=== PATIENT | female | born 2000 | race Caucasian/White ===

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

== ENCOUNTER 2018-06-20 12:43 | Emergency (ER) | payer BC, OTHER ==
--- OUTSIDE RECORDS SUMMARY | 2018-06-20 13:51 | XMS REPORT | Continuity of Care Document ---
:2000 External Reference #:[id number] Author Name Maryuri Ponce NP Address [address] [place] [address] Care Team Providers Name Role Phone [facility] Primary Care Physician Unavailable Payers Date Identification Numbers Payment Provider Subscriber Effective: 2016 Policy Number: [id number] Basilia Cook [employer] Name: Basilia Donnelly Ppo. [address] [address] PayID: [id number] [place] [address] Policy Number: [id number] [facility] Mary Ellen Naiduox PayID: [id number] [address] [place] [address] Policy Number: [id number] Medicaid -[place] Naiduox PayID: [id number] [address] [place] [address] Advance Directives Description No Information Available Problems Date Description Provider Status Onset: 09/16/2014 Smoker Margaux Pettit NP Active Onset: 09/16/2014 Depressive disorder Margaux Pettit NP Active Onset: 09/16/2014 Headache Margaux Pettit NP Active Family History Date Family Member(s) Observation Comments Father Alive Father No Current Problems Mother Alive Mother Disc Disease buldging disc disease Siblings 2 half brothers Social History Type Date Description Comments Sex Female Education Negative For Highest level completed, 11th grade Education 06/19/2018 Highest level completed, 12th grade Marital Status Legal Status: Never Work Status Part-Time Employment [employer] Tobacco Use Reviewed: 06/19/18 Never Smoked Cigars Tobacco Use Reviewed: 06/19/18 Never Smoked A Pipe Smoking Status Reviewed: 06/19/18 Never Smoked A Pipe Tobacco Use Reviewed: 06/19/18 Never Used Smokeless Tobacco ETOH Use 06/19/2018 Denies alcohol use Recreational Drug Use Teaching provided regarding Naloxone/Narcan Training Available At [facility] Tobacco Use Reviewed: 06/19/18 Patient is a current smoker, smokes every day Recreational Drug Use 06/19/2018 Regularly uses Marijuana Tattoo/Piercing Tattoo professionally done Sun Exposure Uses sunscreen Condom Use Frequently STD's No STD History UNKNOWN 06/19/2018 Never E-Cigarette user Allergies, Adverse Reactions, Alerts Date Description Reaction Status Severity Comments 07/21/2014 NKDA Active 07/21/2014 Cats Active 07/21/2014 Bee Sting Active Medications Medication Date Status Form Strength Qnty SIG Indications Ordering Provider 06/19 Active Tablets 90tab one tablet per Z31.69 Maryuri s day SAM Ponce Albuterol 04/06 Active Nebulizer (2.5mg/3M prn In L) 0.083% MD Rocael Depo-Provera 12/13 Hx Suspension 150mg/ml 1ml 1 Z30.42 Maryuri intramuscular Rosario, - injection HEEL WHEELER 06/19 every until annual exam Nicotine 12/13 Hx Patches 21mg/24HR as directed Z72.0 [facility] 24HR Rosario, System Step 1 - HEEL WHEELER 06/19 Depo-Provera 09/27 Hx Suspension 150mg/ml 1ml 1 Maryuri intramuscular Rosario, - injection HEEL WHEELER 06/19 every until annual exam No Active 04/06 Hx Unknown /2015 - 04/06 Diflucan 03/05 Hx Tablets 150mg 1tabs 1 tab by mouth B37.3 as one dose Michael, - HEEL WHEELER 05/05 Medications Administered in Office Medication Date Status Form Strength Qnty SIG Indications Ordering Provider Depo-[employer] 06/27 Administered Suspension 150mg/ml 1ml intramuscu In [facility] lar every MD Rocael - 12 weeks 07/04 til annual Depo-[employer] 1ml12 Administered Suspension 150mg/ml 1ml intramuscu Z30.42 In [facility] lar every MD Rocael 016 12 weeks til next annual Depo-[employer] 12/23 Administered Suspension 150mg/ml 1ml 1 [facility] intramuscu Rosario - lar HEEL WHEELER 12/30 injection /2015 every 12 weeks until annual exam Depo-[employer] Pilot 1ml06 Administered Suspension 150mg/ml 1ml 1 Maryuri Cabrera intramuscu Rosario, 016 lar HEEL WHEELER injection every 12 weeks until annual exam Depo-[employer] Pilot 07/22 Administered Suspension 150mg/ml 1ml intramuscu In [facility] lar every MD Rocael - 12 weeks 07/26 til annual Depo-[employer] 1ml01 Administered Suspension 150mg/ml 1ml 1 Maryuri Cabrera intramuscu Rosario, 016 lar HEEL WHEELER injection every 12 weeks until annual exam Depo-[employer] Pilot 1ml10 Administered Suspension 150mg/ml 1ml 1 Margaux injection Servies, 015 every 12 HEEL WHEELER weeks until ae Depo-Arm[employer] Hel[employer]opter Pilot 09/16 Administered Suspension 150mg/ml 1ml 1 Z30.40 Margaux injection Servies, - every 12 HEEL WHEELER until ae Depo-Arm[employer]opter Pilot 07/21 Administered Suspension 150mg/ml 1ml 1 Margaux injection Servies, - every 12 HEEL WHEELER until ae J-Depo 1ml03 Administered Injection Sherry Provera /08/16 [place] Injection 018 J-Depo 03/23 Administered Injection Sherry Provera [place] Injection J-Depo 12/13 Administered Injection Maryuri M Prove Chiragchner, Injection HEEL WHEELER J-Depo 09/27 Administered Injection Sherry Provera [place] Injection J-Depo 07/04 Administered Injection Sherry Provera [place] Injection J-Depo 04/06 Administered Injection Uzma Prove Hairdick, Injection HEEL WHEELER J-Depo 12/30 Administered Injection Sherry Provera [place] Injection J-Depo 12/30 Administered Injection RN Prove Schedule Injection J-Depo 10/07 Administered Injection Maryuri M Prove Kelchner, Injection HEEL WHEELER J-Depo 07/22 Administered Injection Claude, Provera Vilma, RN Injection J-Depo 05/05 Administered Injection Claude, Provera Vilma, RN Injection J-Depo 02/10 Administered Injection Sherry Provera [place] Injection J-Depo 11/18 Administered Injection Claude, Prove Vilma, RN Injection J-Depo 11/18 Administered Injection RN Prove Schedule Injection J-Depo 08/26 Administered Injection Sherry Provera [place] Injection J-Depo 06/06 Administered Injection Sherry Provera [place] Injection J-Depo 03/19 Administered Injection Vilma Provera Claude Injection RN J-Depo 01/01 Administered Injection Sherry Provera [place] Injection Immunizations Description No Information Available Vital Signs Date Vital Result Comment 06/19/2018 9:52am BP Systolic Recheck 129 mmHg BP Diastolic Recheck 83 mmHg Height 64.5 inches 5'4.50" Weight 107.00 lb BMI (Body Mass Index) 18.1 kg/m2 06/19/2017 2:36pm BP Systolic 108 mmHg BP Diastolic 68 mmHg Weight 109.00 lb 03/23/2017 5:03pm BP Systolic 108 mmHg BP Diastolic 64 mmHg Weight 105.00 lb 12/13/2016 9:32am BP Systolic 109 mmHg BP Diastolic 66 mmHg Height 64.5 inches 5'4.50" Weight 101.00 lb BMI (Body Mass Index) 17.1 kg/m2 09/27/2016 2:45pm BP Systolic 118 mmHg BP Diastolic 72 mmHg Weight 100.00 lb 07/04/2016 2:36pm BP Systolic 118 mmHg BP Diastolic 68 mmHg Weight 107.00 lb 04/06/2016 3:00pm BP Systolic 120 mmHg BP Diastolic 69 mmHg Height 64.5 inches 5'4.50" Weight 109.00 lb BMI (Body Mass Index) 18.4 kg/m2 12/31/2015 3:34pm BP Systolic 104 mmHg BP Diastolic 68 mmHg Weight 111.00 lb 10/08/2015 3:41pm BP Systolic 88 mmHg BP Diastolic 58 mmHg Height 64.5 inches 5'4.50" Weight 106.00 lb BMI (Body Mass Index) 17.9 kg/m2 07/23/2015 4:13pm BP Systolic 104 mmHg BP Diastolic 62 mmHg Weight 105.00 lb 05/05/2015 3:05pm BP Systolic 98 mmHg BP Diastolic 60 mmHg Weight 99.00 lb Last Menstrual Period [id number] 03/05/2015 12:48pm BP Systolic 98 mmHg BP Diastolic 60 mmHg Height 64.5 inches 5'4.50" Weight 97.00 lb BMI (Body Mass Index) 16.4 kg/m2 02/10/2015 3:23pm BP Systolic 110 mmHg BP Diastolic 62 mmHg Weight 100.00 lb 12/16/2014 9:16am BP Systolic 100 mmHg BP Diastolic 70 mmHg Height 64.5 inches 5'4.50" Weight 95.00 lb BMI (Body Mass Index) 16.1 kg/m2 11/18/2014 1:36pm BP Systolic 110 mmHg BP Diastolic 60 mmHg Weight 95.00 lb Last Menstrual Period [id number] 09/16/2014 10:41am BP Systolic 100 mmHg BP Diastolic 60 mmHg Height 64 inches 5'4" Weight 97.00 lb BMI (Body Mass Index) 16.6 kg/m2 08/26/2014 3:17pm BP Systolic 106 mmHg BP Diastolic 64 mmHg Weight 100.00 lb Results Test Date Facility Test Result H/L Range Note Laboratory test 06/19/2018 [facility] Test positive finding Urine..... Culture,Urine,Voided 12/13/2016 [facility] URINE Final Report NAD 1 Laboratory test 12/13/2016 [facility].Trachomatis NOT DETECTED Not Detected 2 finding Rna,Tma W/RFX N.Gonorrhoeae Rna,Tma Urinalysis DIP 12/13/2016 [facility] Urine Leukocyte n Only.... Esterase QN Urine Nitrite QN n Urine Blood +non hem Urine PH 5 Urine Protein Random tr Urine Ketone Random n Urine Glucose QN Random n Laboratory test finding 04/06/2016 [facility] Test Urine..... Neg Culture,Urine,Voided 10/08/2015 [facility] URINE Final Report NAD 3 Laboratory test 10/08/2015 [facility].Trachomatis NOT DETECTED Not Detected 4 finding Rna,Tma W/RFX N.Gonorrhoeae Rna,Tma Urinalysis DIP 10/08/2015 [facility] Urine Leukocyte ++ Only.... Esterase QN Urine Nitrite QN N Urine Blood N Urine PH 5.0 Urine Protein Random N Urine Ketone Random + Urine Glucose QN Random N Laboratory test finding 10/08/2015 [facility] Test Urine..... neg Wet Prep.... 03/05/2015 [facility] WBC Smear 5-6 Clue Cells Vag Fluid Wet Prep - Fiorella Wet Prep + Lactobacillus Wet Prep + Whiff Wet Prep _ Bacteria Wet Prep + PH Wet Prep 4.5 Misc Other Test _ trich Laboratory test 03/05/2015 [facility].Trachomatis NOT DETECTED Not Detected 5 finding Rna,Tma W/RFX N.Gonorrhoeae Rna,Tma GC 12/16/2014 [facility] RESPIRATORY-OR 6 Culture,Genital AL Final Report SEE NOTE 7 Chlam 12/16/2014 [facility] C.Trachomatis NOT DETECTED Not Detected 8 Trach/Neisseria Rna,Tma Gonorroeae Rna Tma N.Gonorrhoeae Rna,Tma NOT DETECTED Not Detected 9 Wet Prep.... 12/16/2014 [facility] WBC Smear 5-6 Clue Cells Vag Fluid Wet Prep - Fiorlela Wet Prep _ Lactobacillus Wet Prep + Whiff Wet Prep _ Bacteria Wet Prep + PH Wet Prep 4.5 Misc Other Test _ Urinalysis DIP Only.... 12/16/2014 [facility] Urine Leukocyte Esterase QN + Urine Nitrite QN N Urine Blood N Urine PH 5 Urine Protein Random N Urine Ketone Random N Urine Glucose QN Random N Chlam 09/16/2014 [facility].Trachomatis NOT DETECTED Not Detected 10 Trach/Neisseria Rna,Tma Gonorroeae Rna Tma N.Gonorrhoeae Rna,Tma NOT DETECTED Not Detected 11 Culture,Urine,Voided 09/16/2014 [facility] URINE Final Report SEE NOTE 12 Neno Annual Lab Set 09/16/2014 [facility] HGB Blood.... 12.0 Urinalysis DIP Only.... 09/16/2014 [facility] Urine Leukocyte Esterase QN + Urine Nitrite QN N Urine Blood + non hem Urine PH 5 Urine Protein Random Tr Urine Ketone Random N Urine Glucose QN Random N Laboratory test 09/16/2014 [facility] HIV Rapid... non reactive finding Laboratory test 08/26/2014 [facility].Trachomatis NOT DETECTED Not Detected 13 finding Rna,Tma W/RFX N.Gonorrhoeae Rna,Tma 1 MULTIPLE ORGANISMS PRESENT, EACH <10,000 CFU/ML. THESE ORGANISMS COMMONLY FOUND ON EXTERNAL AND INTERNAL GENITALIA, ARE CONSIDERED TO BE COLONIZERS. NO FURTHER TESTING PERFORMED. 2 This test was performed using the APTIMA COMBO2(R) Assay (GEN-PROBE(R). The analytical performance characteristics of this assay, when used to test SurePath(R) specimens have been determined by [employer] (formerly [employer]). 3 MULTIPLE ORGANISMS PRESENT, EACH <10,000 CFU/ML. THESE ORGANISMS COMMONLY FOUND ON EXTERNAL AND INTERNAL GENITALIA, ARE CONSIDERED TO BE COLONIZERS. NO FURTHER TESTING PERFORMED. 4 This test was performed using the APTIMA COMBO2(R) Assay (GEN-PROBE(R). The analytical performance characteristics of this assay, when used to test SurePath(R) specimens have been determined by [facility]. 5 This test was performed using the APTIMA COMBO2(R) Assay (GEN-PROBE(R). The analytical performance characteristics of this assay, when used to test SurePath(R) specimens have been determined by [facility]. 6 RESPIRATORY-ORAL 7 NO NEISSERIA GONORRHOEAE ISOLATED. 8 This test was performed using the APTIMA COMBO2(R) Assay (GEN-PROBE(R). The analytical performance characteristics of this assay, when used to test SurePath(R) specimens have been determined by [facility]. 9 This test was performed using the APTIMA COMBO2(R) Assay (GEN-PROBE(R). The analytical performance characteristics of this assay, when used to test SurePath(R) specimens have been determined by [facility]. 10 This test was performed using the APTIMA COMBO2(R) Assay (GEN-PROBE(R). The analytical performance characteristics of this assay, when used to test SurePath(R) specimens have been determined by [facility]. 11 This test was performed using the APTIMA COMBO2(R) Assay (GEN-PROBE(R). The analytical performance characteristics of this assay, when used to test SurePath(R) specimens have been determined by [facility]. 12 MULTIPLE ORGANISMS PRESENT, EACH <10,000 CFU/ML. THESE ORGANISMS COMMONLY FOUND ON EXTERNAL AND INTERNAL GENITALIA, ARE CONSIDERED TO BE COLONIZERS. NO FURTHER TESTING PERFORMED. 13 This test was performed using the APTIMA COMBO2(R) Assay (GEN-PROBE(R). The analytical performance characteristics of this assay, when used to test SurePath(R) specimens have been determined by [facility]. Procedures Date Code Description Status 06/19/2017 18938 Therapeutic, Prophylactic Or Diagnostic Injection Subq/Im Completed 03/23/2017 39856 Therapeutic, Prophylactic Or Diagnostic Injection Subq/Im Completed 12/13/2016 65919 Therapeutic, Prophylactic Or Diagnostic Injection Subq/Im Completed 09/27/2016 83290 Therapeutic, Prophylactic Or Diagnostic Injection Subq/Im Completed 07/04/2016 73519 Therapeutic, Prophylactic Or Diagnostic Injection Subq/Im Completed 04/06/2016 47317 Therapeutic, Prophylactic Or Diagnostic Injection Subq/Im Completed 12/31/2015 91921 Therapeutic, Prophylactic Or Diagnostic Injection Subq/Im Completed 12/31/2015 74943 Therapeutic, Prophylactic Or Diagnostic Injection Subq/Im Completed 10/08/2015 48390 Therapeutic, Prophylactic Or Diagnostic Injection Subq/Im Completed 07/23/2015 89437 Therapeutic, Prophylactic Or Diagnostic Injection Subq/Im Completed 05/05/2015 38821 Therapeutic, Prophylactic Or Diagnostic Injection Subq/Im Completed 02/10/2015 36736 Therapeutic, Prophylactic Or Diagnostic Injection Subq/Im Completed 11/18/2014 40888 Therapeutic, Prophylactic Or Diagnostic Injection Subq/Im Completed 11/18/2014 23857 Therapeutic, Prophylactic Or Diagnostic Injection Subq/Im Completed 08/26/2014 97401 Therapeutic, Prophylactic Or Diagnostic Injection Subq/Im Completed 06/06/2014 92095 Therapeutic, Prophylactic Or Diagnostic Injection Subq/Im Completed 03/19/2014 39614 Therapeutic, Prophylactic Or Diagnostic Injection Subq/Im Completed 01/01/2014 94232 Therapeutic, Prophylactic Or Diagnostic Injection Subq/Im Completed Encounters Description No Information Available Plan of Treatment 06/19/2018 - Maryuri Ponce, NPN91.2 Amenorrhea, unspecifiedComments:+ test. Start a vitamin with folic acid. Do not touch cat litter. Do no eat raw or undercooked meat, dairy or seafood. Patient does not drink. Advised to quit smoking marijuana and tobacco. Advised Tylenol only for pain. Reviewed signs and symptoms of miscarriage and ectopic with patient. Please call for any questions or concerns. Refer to per patient request.Z31.69 Encounter for other general counseling and advice on procreaNew Medication: Vitamin - one tablet per dayComments:as ljyuhZ90.01 Encounter for test, result positiveComments:Options counseling performed. Patient would like to continue .F41.1 Generalized anxiety disorderComments:Recommend counseling as a safer alternative to using marijuana for her anxiety. Patient is willing to go to counseling. Gave her contact information and she plans to schedule counseling at [facility]. Also advised patient that she should discuss what are the safest options for medication therapy for anxiety during with her OB. Patient states understanding.
[2018-06-20 14:18] VITALS: BP 123/68
--- NOTE | 2018-06-20 14:43 | UC ---
- HPI Summary HPI Summary: Pt presents with c/o constant nausea and vomiting due to . Pt went to [facility] on 06/18/18 and found out she was . Pt LMP was in 04/03. Pt does not have an OB as of yet. Pt states she has been calling local OB provider and unable to find one to accept her. - History of Current Complaint Chief Complaint: UCGI Stated Complaint: PERSISTENT MORNING SICKNESS/VOMITING X 3 DAYS Time Seen by Provider: 06/20/18 14:31 Hx Obtained From: Patient Onset/Duration: Started Days Ago, Still Present Timing: Constant Severity: Moderate Current Severity: Mild Pain Intensity: 0 Associated Signs and Symptoms: Positive: Appetite - decreased - Assessment Hx Now: Yes - Allergies/Home Medications Allergies/Adverse Reactions: Allergies Allergy/AdvReac Type Severity Reaction Status Date / Time cats, maybe bees(father is Allergy Congestion Uncoded 06/20/18 14:02 allergic Home Medications: Home Medications Pnv No.95/Ferrous Fum/Folic AC [ Tablet] 1 tab PO DAILY 06/20/18 [ History Confirmed 06/20/18] PMH/Surg Hx/FS Hx/Imm Hx Previously Healthy: Yes Other History Of: Negative For: HIV, Hepatitis B, Hepatitis C, Anticoagulant Therapy - Surgical History Surgical History: Yes Surgery Procedure, Year, and Place: t&a - Family History Known Family History: Negative: Cardiac Disease, Hypertension, Diabetes - Social History Occupation: Employed Full-time Lives: With Family Alcohol Use: None Substance Use Type: None Smoking Status (MU): Never Smoked Tobacco Have You Smoked in the Last Year: No Household Exposure Type: Cigarettes - Immunization History Most Recent Influenza Vaccination: NOT YET IN 2106 Vaccination Up to Date: Yes Review of Systems All Other Systems Reviewed And Are Negative: Yes Constitutional: Positive: Fatigue Skin: Positive: Negative Eyes: Positive: Negative ENT: Positive: Negative Respiratory: Positive: Negative Cardiovascular: Positive: Negative Gastrointestinal: Positive: Vomiting, Nausea Genitourinary: Positive: Negative Motor: Positive: Negative Neurovascular: Positive: Negative Musculoskeletal: Positive: Negative Neurological: Positive: Negative Psychological: Positive: Negative Is Patient Immunocompromised?: No Physical Exam - Physical Exam Triage Information Reviewed: Yes Vital Signs Reviewed: Yes Appearance: Positive: Well-Appearing Skin: Positive: Warm Head/Face: Positive: Normal Head/Face Inspection Eyes: Positive: Normal ENT: Positive: Normal ENT inspection Neck: Positive: Supple Respiratory/Lung Sounds: Positive: Clear to Auscultation Cardiovascular: Positive: Normal Abdomen Description: Positive: Nontender Musculoskeletal: Positive: Normal Neurological: Positive: Normal Psychiatric: Positive: Normal, Affect/Mood Appropriate AVPU Assessment: Alert Diagnostics - Vital Signs Vital Signs Temp Pulse Resp BP Pulse Ox 06/20/18 13:58 106 122/75 06/20/18 13:53 98.6 F 73 20 120/64 100 - Laboratory Lab Results: Lab Results 06/20/18 Range/Units 14:31 POC Ur Test Positive A (Negative) Lab Statement: Any lab studies that have been ordered have been reviewed, and results considered in the medical decision making process. - Course Course Of Treatment: Pt denied urinary symptoms. I discussed all test results with pt. I discussed the risk factors of taking zofran and pt verbalized understanding. - Differential Diagnosis/HQI/PQRI: Hyperemesis Gravidarum, Early - Diagnoses Provider Diagnoses: Nausea and vomiting during Discharge - Sign-Out/Discharge Documenting (check all that apply): Patient Departure All imaging exams completed and their final reports reviewed: No Studies - Discharge Plan Condition: Stable Disposition: HOME Prescriptions: Ondansetron TAB* [Zofran 4 MG Tab*] 4 mg PO Q8H PRN #15 tab PRN Reason: Nausea Patient Education Materials: Nausea and Vomiting in (ED) Forms: *Work Release Referrals: [facility] [Provider Group] [facility] [Provider Group] [facility] [Provider Group] Lilian Webb NP [Primary Care Provider] - If Needed Additional Instructions: PLEASE ESTABLISH CARE WITH AN OB PROVIDER SOON POSSIBLE. PLEASE NOTE THAT WE DISCUSSED THE RISK FACTORS ASSOCIATED WITH TAKING ZOFRAN WHILE . PLEASE FOLLOW UP WITH OB PROVIDER WITH REGARD TO YOUR NAUSEA AND VOMITING RELATED TO . IF YOU ARE UNABLE TO MANAGE THE NAUSEA AND VOMITING AT HOME PLEASE SEEK CARE AT THE CLOSEST EMERGENCY ROOM. - Billing Disposition and Condition Condition: STABLE Disposition: Home
== END 2018-06-20 14:59 | disposition home or self-care (01) ==
LOC: UCCORT 12:43
DX: O21.9 Vomiting of pregnancy, unspecified (principal); Z91.09 Other allergy status, other than to drugs and biological substances
CPT/HCPCS: 81003; 84702; 87086; 99212; G0463

== ENCOUNTER 2019-01-05 11:14 | Emergency (ER) | payer BC, OTHER ==
[2019-01-05 12:07] VITALS: BP 112/59
--- NOTE | 2019-01-05 12:22 | UC ---
Throat Pain/Nasal Samuel HPI - HPI Summary HPI Summary: 18-year-old female whose 34 weeks comes in with chief complaint of sore throat runny nose for 3 days. It hurts to swallow. No cough or chest congestion. No wheezing. Patient does have a history of asthma. She has not had use her albuterol inhaler reports that she's had the upper respiratory tract infection symptoms. Feels the baby moving. - History of Current Complaint Chief Complaint: UCGeneralIllness Stated Complaint: SORE THROAT Time Seen by Provider: 01/05/19 12:03 Hx Last Menstrual Period: 03/2018 Pain Intensity: 8 - Allergies/Home Medications Allergies/Adverse Reactions: Allergies Allergy/AdvReac Type Severity Reaction Status Date / Time cats, maybe bees(father is Allergy Congestion Uncoded 01/05/19 12:07 allergic PMH/Surg Hx/FS Hx/Imm Hx Previously Healthy: Yes Respiratory History: Asthma Other History Of: Negative For: HIV, Hepatitis B, Hepatitis C, Anticoagulant Therapy - Surgical History Surgical History: Yes Surgery Procedure, Year, and Place: t&a - Family History Known Family History: Negative: Cardiac Disease, Hypertension, Diabetes - Social History Alcohol Use: None Substance Use Type: None Smoking Status (MU): Never Smoked Tobacco Have You Smoked in the Last Year: No Household Exposure Type: Cigarettes - Immunization History Most Recent Influenza Vaccination: NOT YET IN 2106 Vaccination Up to Date: Yes Review of Systems All Other Systems Reviewed And Are Negative: Yes Constitutional: Positive: Negative Skin: Positive: Negative Eyes: Positive: Negative ENT: Positive: Sore Throat, Nasal Discharge, Sinus Congestion Respiratory: Positive: Cough Cardiovascular: Positive: Negative Gastrointestinal: Positive: Negative Motor: Positive: Negative Neurovascular: Positive: Negative Musculoskeletal: Positive: Negative Neurological: Positive: Negative Psychological: Positive: Negative Is Patient Immunocompromised?: No Physical Exam Triage Information Reviewed: Yes Appearance: No Pain Distress, Well-Nourished, Ill-Appearing - mild Vital Signs: Initial Vital Signs Temp 98.1 F 01/05/19 12:05 Pulse 98 01/05/19 12:05 Resp 16 01/05/19 12:05 BP 112/59 01/05/19 12:05 Pulse Ox 99 01/05/19 12:05 Vital Signs Reviewed: Yes Eye Exam: Normal Eyes: Positive: Conjunctiva Clear ENT: Positive: Pharyngeal erythema, Nasal congestion, Nasal drainage, TMs normal Neck: Positive: Supple Respiratory: Positive: Lungs clear, Normal breath sounds, No respiratory distress Cardiovascular: Positive: RRR Abdomen Description: Positive: Other: - gravid Musculoskeletal: Positive: Strength Intact, ROM Intact Neurological: Positive: Alert Psychological: Positive: Age Appropriate Behavior Skin Exam: Normal Throat Pain/Nasal Course/Dx - Course Course Of Treatment: DISCUSSED VIRAL VERSES BACTERIAL INFECTION AND THE ROLE OF ANTIBIOTICS. PATIENT PREFERS TO BE ON ANTIBIOTICS AT THIS TIME. - Differential Dx/Diagnosis Provider Diagnosis: Pharyngitis, Upper respiratory infection Discharge ED - Sign-Out/Discharge Documenting (check all that apply): Patient Departure All imaging exams completed and their final reports reviewed: No Studies - Discharge Plan Condition: Stable Disposition: HOME Prescriptions: Amoxicillin PO (*) [Amoxicillin 500 MG CAP*] 500 mg PO BID #20 cap Patient Education Materials: Pharyngitis (ED), Upper Respiratory Infection (ED) Forms: *Work Release Referrals: Lilian Webb DRIVING INSTRUCTOR [Primary Care Provider] - Additional Instructions: FOLLOW UP WITH YOUR DOCTOR IF NOT COMPLETELY IMPROVED. GET REEVALUATED SOONER IF WORSE OR ANY QUESTIONS OR CONCERNS. - Billing Disposition and Condition Condition: STABLE Disposition: Home
== END 2019-01-05 12:35 | disposition home or self-care (01) ==
LOC: UCCORT 11:14
DX: O99.513 Diseases of the respiratory system complicating pregnancy, third trimester (principal); J02.9 Acute pharyngitis, unspecified; J06.9 Acute upper respiratory infection, unspecified; Z3A.34 34 weeks gestation of pregnancy
CPT/HCPCS: 87651; 99212; G0463

== ENCOUNTER 2019-02-20 12:49 | Emergency (ER) | payer BC, OTHER ==
[2019-02-20 13:54] VITALS: BP 117/67
--- NOTE | 2019-02-20 14:28 | UC ---
Complaint Female HPI - HPI Summary HPI Summary: 18-year-old female who is 6 days uncomplicated vaginal delivery presents with 2-3 day history of dysuria, frequency, and urgency. Patient is bottle feeding exclusively. Denies fever, chills, abdominal pain, back or flank pain, nausea, or vomiting. - History Of Current Complaint Chief Complaint: UCGU Stated Complaint: URINARY Time Seen by Provider: 02/20/19 13:52 Hx Obtained From: Patient Hx Last Menstrual Period: 03/2018 Pain Intensity: 0 - Allergies/Home Medications Allergies/Adverse Reactions: Allergies Allergy/AdvReac Type Severity Reaction Status Date / Time cats, maybe bees(father is Allergy Congestion Uncoded 02/20/19 13:49 allergic PMH/Surg Hx/FS Hx/Imm Hx Previously Healthy: Yes - Denies significant PMH Other History Of: Negative For: HIV, Hepatitis B, Hepatitis C, Anticoagulant Therapy - Surgical History Surgical History: Yes Surgery Procedure, Year, and Place: T&A - Family History Known Family History: Negative: Cardiac Disease, Hypertension, Diabetes - Social History Occupation: Employed Full-time Lives: With Family Alcohol Use: None Substance Use Type: None Smoking Status (MU): Never Smoked Tobacco Have You Smoked in the Last Year: No Household Exposure Type: Cigarettes - Immunization History Most Recent Influenza Vaccination: NOT YET IN 2106 Vaccination Up to Date: Yes Review of Systems All Other Systems Reviewed And Are Negative: Yes Constitutional: Negative: Fever, Chills Respiratory: Positive: Negative Cardiovascular: Positive: Negative Gastrointestinal: Negative: Abdominal Pain, Vomiting, Nausea Genitourinary: Positive: Dysuria, Frequency, Urgency. Negative: Abnormal Bleeding Musculoskeletal: Positive: Negative Neurological: Positive: Negative Is Patient Immunocompromised?: No Physical Exam - Summary Physical Exam Summary: GENERAL APPEARANCE: Well developed, well nourished, alert and cooperative, and appears to be in no acute distress. EYES: Conjunctiva clear. No drainage. EARS: External auditory canals and tympanic membranes clear, hearing grossly intact. NOSE: No nasal discharge. THROAT: Pharynx normal No tonsilar inflammation, swelling, exudate, or lesions. Uvula midline. NECK: Neck supple, non-tender without lymphadenopathy. CARDIAC: Normal S1 and S2. No S3, S4 or murmurs. Rhythm is regular. There is no peripheral edema, cyanosis or pallor. Extremities are warm and well perfused. Capillary refill is less than 2 seconds. Peripheral pulses intact. LUNGS: Clear to auscultation without rales, rhonchi, wheezing or diminished breath sounds. ABDOMEN: Positive bowel sounds. Soft, nondistended, nontender. No guarding or rebound. No masses or hepatosplenomegally. MUSKULOSKELETAL: ROM intact to all extremities. No joint erythema or tenderness. Normal muscular development. Normal gait. SKIN: Skin normal color, texture and turgor with no lesions or eruptions. Triage Information Reviewed: Yes Vital Signs: Initial Vital Signs Temp 98 F 02/20/19 13:50 Pulse 100 02/20/19 13:50 Resp 18 02/20/19 13:50 BP 117/67 02/20/19 13:50 Pulse Ox 98 02/20/19 13:50 Vital Signs Reviewed: Yes Complaint Female Dx - Course Course Of Treatment: 18-year-old female who is 6 days uncomplicated vaginal delivery presents with 2-3 day history of dysuria, frequency, and urgency. Patient is bottle feeding exclusively. Denies fever, chills, abdominal pain, back or flank pain, nausea, or vomiting. Afebrile. Vital signs stable. Patient's exam was overall unremarkable. [id number] urinalysis showed 3+ leukocyte esterase, 3 + blood, 2+ protein, 4+ her bilirubin, and trace glucose. Urine culture is pending. Reviewed results with the patient. Based on this and her symptoms we will treat her empirically for a urinary tract infection pending the urine culture results. She is to start Bactrim DS 1 tab twice daily 5 days. I'll also provide her with Pyridium 100 mg 3 times a day 2 days with the discomfort. She is to follow-up with her primary care provider in 3-5 days if symptoms are not improving. Anticipatory guidance and warning symptoms were reviewed with the patient. Verbalizes understanding and agrees with plan of care. - Differential Dx/Diagnosis Differential Diagnosis/HQI/PQRI: Pelvic Inflammatory Disease, Renal Colic, Sexually Transmitted Disease, Urinary Tract Infection Provider Diagnosis: UTI (urinary tract infection) Discharge ED - Sign-Out/Discharge Documenting (check all that apply): Patient Departure All imaging exams completed and their final reports reviewed: No Studies - Discharge Plan Condition: Stable Disposition: HOME Prescriptions: Phenazopyridine TAB* [Pyridium 100 mg TAB*] 100 mg PO TID #6 tab Sulfamethox/Trimethoprim DS* [Bactrim DS 800/160 TAB*] 1 tab PO BID #10 tab Patient Education Materials: Urinary Tract Infection in Women (DC) Referrals: No Primary Care Phys,NOPCP [Primary Care Provider] - Additional Instructions: Your urine test in the clinic today is suggestive of a urinary tract infection. We will start you on an antibiotic to treat for the infection. We will also send a urine culture today to see what bacteria grow out and make sure the antibiotic you were prescribed is appropriate to treat the infection. It will take 48-72 hours to get these results. We will contact you if there is any change in your treatment plan. Start Bactrim DS 1 tab twice a day for 5 days. Take Pyridium 1 tablet every 8 hours for next 2 days to help with the discomfort. This medication will turn your urine an orange color. Drink plenty of fluids. To help prevent urinary tract infections: 1) Be sure to wipe from front to back. 2) Urinate immediately after any sexual intercourse. 3) Avoid taking bubble baths. Follow up with your primary care provider in 3-57 days if symptoms persist. Seek immediate medical attention in the emergency room if you develop fever greater than 100.5 F, have severe abdominal pain, persistent vomiting, or any worsening of symptoms. - Billing Disposition and Condition Condition: STABLE Disposition: Home
--- NOTE | 2019-02-23 07:21 | UC ---
- Progress Note Progress Note: Laboratory report reviewed Final urine culture report: No growth of clinically significant organisms Initial UA suggestive of UTI and patient is on Bactrim currently RN to call the patient and discuss findings with the patient. Recommend stopping Bactrim and if symptoms are still present , should be reevaluated in ER as there was blood on UA as well. Course/Dx - Diagnoses Provider Diagnoses: UTI (urinary tract infection) Discharge ED - Sign-Out/Discharge Documenting (check all that apply): Post-Discharge Follow Up All imaging exams completed and their final reports reviewed: No Studies - Discharge Plan Condition: Stable Disposition: HOME Prescriptions: Phenazopyridine TAB* [Pyridium 100 mg TAB*] 100 mg PO TID #6 tab Sulfamethox/Trimethoprim DS* [Bactrim DS 800/160 TAB*] 1 tab PO BID #10 tab Patient Education Materials: Urinary Tract Infection in Women (DC) Referrals: No Primary Care Phys,NOPCP [Primary Care Provider] - Additional Instructions: Your urine test in the clinic today is suggestive of a urinary tract infection. We will start you on an antibiotic to treat for the infection. We will also send a urine culture today to see what bacteria grow out and make sure the antibiotic you were prescribed is appropriate to treat the infection. It will take 48-72 hours to get these results. We will contact you if there is any change in your treatment plan. Start Bactrim DS 1 tab twice a day for 5 days. Take Pyridium 1 tablet every 8 hours for next 2 days to help with the discomfort. This medication will turn your urine an orange color. Drink plenty of fluids. To help prevent urinary tract infections: 1) Be sure to wipe from front to back. 2) Urinate immediately after any sexual intercourse. 3) Avoid taking bubble baths. Follow up with your primary care provider in 3-57 days if symptoms persist. Seek immediate medical attention in the emergency room if you develop fever greater than 100.5 F, have severe abdominal pain, persistent vomiting, or any worsening of symptoms. - Billing Disposition and Condition Condition: STABLE Disposition: Home
== END 2019-02-20 14:39 | disposition home or self-care (01) ==
LOC: UCCORT 12:49
DX: O86.20 Urinary tract infection following delivery, unspecified (principal); Z91.09 Other allergy status, other than to drugs and biological substances
CPT/HCPCS: 81003; 87086; 99212; G0463

== ENCOUNTER 2019-06-03 10:44 | Emergency (ER) | payer BC, OTHER ==
--- OUTSIDE RECORDS SUMMARY | 2019-06-03 11:14 | XMS REPORT | Continuity of Care Document ---
:2000 External Reference #:[id number] Author Name Brooke Quintero, [facility] Address [address] [place] [id number] Care Team Providers Name Role Phone Bandar Arora MD - Emergency Care Team Information Forest Engineer [phone] Medicine Kristina Bedoya FNP - Family Care Team Information Forest Engineer [phone] Problems Active Problems Provider Date Candice Gann M.D. Onset: 10/02/2018 Hydronephrosis Candice Gann M.D. Onset: 10/02/2018 Social History Type Date Description Comments Sex Unknown Tobacco Use Start: Unknown Never Smoked Cigarettes ETOH Use Denies alcohol use Recreational Drug Use Denies Drug Use Tobacco Use Start: Unknown End: Unknown Patient is a former smoker Smoking Status Reviewed: 02/04/19 Patient is a former smoker Allergies, Adverse Reactions, Alerts Description No Known Drug Allergies Medications Active Medications SIG Qnty Indications Ordering Provider Date Albuterol Sulfate inhale 1 vial via Unknown nebulizer every 4 1.25mg/3ML Nebulizer hours as needed for cough or sob Immunizations Description No Information Available Vital Signs Date Vital Result Comment 04/15/2019 9:42am BP Systolic 116 mmHg BP Diastolic 70 mmHg Body Temperature 97.3 F Heart Rate 87 /min Height 64 inches 5'4" [place] body weight in kilograms 54 kg O2 % BldC Oximetry 99 % 04/04/2019 9:57am BP Systolic Sitting Left Arm 129 mmHg BP Diastolic Sitting Left Arm 71 mmHg Body Temperature 95.7 F Heart Rate 94 /min Respiratory Rate 20 /min Height 64 inches 5'4" Weight 129.00 lb BMI (Body Mass Index) 22.1 kg/m2 BSA (Body Surface Area) 1.62 m2 [place] body weight in kilograms 54 kg O2 % BldC Oximetry 99 % Results Description No Information Available Procedures Date Code Description Status 04/15/2019 02582 Radiology, Wrist Complete Completed 04/15/2019 22310 Application of Cast short arm Completed Medical Devices Description No Information Available Encounters Type Date Location Provider Dx Diagnosis Office Visit 04/15/2019 Orthopaedic Office Brooke Quintero M25.531 Pain in right 10:00a S., [facility] wrist Office Visit 04/04/2019 Orthopaedic Office Brooke Quintero M25.531 Pain in right 10:00a S., [facility] wrist Assessments Date Code Description Provider 04/15/2019 M25.531 Pain in right wrist Brooke Quintero, [facility] 04/04/2019 M25.531 Pain in right wrist Brooke Quintero, [facility] Plan of Treatment No Information Available Functional Status Description No Information Available Mental Status Description No Information Available Referrals Description No Information Available
--- OUTSIDE RECORDS SUMMARY | 2019-06-03 11:14 | XMS REPORT | Continuity of Care Document ---
:2000 External Reference #:[id number] Author Name Brooke Quintero, [facility] Address [address] [place] [id number] Care Team Providers Name Role Phone Bandar Arora MD - Emergency Care Team Information Entry Level Software Engineer [phone] Medicine Kristina Bedoya FNP - Family Care Team Information Entry Level Software Engineer [phone] Problems Active Problems Provider Date Candice Gann [...] Medications SIG Qnty Indications Ordering Provider Date Diclofenac Sodium 1 tab twice a day 60tabs Ana Jacome, 05/17/2019 with food 50mg Tablets Albuterol Sulfate inhale 1 vial via Unknown nebulizer every 4 1.25mg/3ML Nebulizer hours as needed for cough or sob Immunizations Description No Information Available Vital Signs Date Vital Result Comment 05/17/2019 8:55am BP Systolic Sitting Right Arm 112 mmHg BP Diastolic Sitting Right Arm 69 mmHg 04/15/2019 9:42am BP Systolic 116 mmHg BP Diastolic 70 mmHg Body Temperature 97.3 F Heart Rate 87 /min Height 64 inches 5'4" [place] body weight in kilograms 54 kg O2 % BldC Oximetry 99 % Results Description No Information Available Procedures Date Code Description Status 05/17/2019 07139 Radiology, Wrist Complete Completed 04/15/2019 20853 Radiology, Wrist Complete Completed 04/15/2019 52083 Application of Cast short arm Completed 04/04/2019 40918 Application of Cast short arm Completed Medical Devices Description No Information Available Encounters Type Date Location Provider Dx Diagnosis Office Visit 04/15/2019 Orthopaedic Office Brooke Quintero M25.531 Pain in right 10:00a S., [facility] wrist Office Visit 04/04/2019 Orthopaedic Office Brooke Quintero M25.531 Pain in right 10:00a S., [facility] wrist W00.9xxA Unspecified fall due to ice and snow, initial encounter Assessments Date Code Description Provider 05/17/2019 M25.531 Pain in right wrist Brooke Quintero, [facility] 04/15/2019 M25.531 Pain in right wrist Brooke Quintero, [facility] 04/04/2019 M25.531 Pain in right wrist Brooke Quintero, [facility] 04/04/2019 W00.9xxA Unspecified fall due to ice and snow, Brooke Quintero [facility] initial encounter Plan of Treatment Future Appointment(s):06/14/2019 9:45 am - Brooke Quintero [facility] at Orthopaedic Office Functional Status Description No Information Available Mental Status Description No Information Available Referrals Description No Information Available
--- OUTSIDE RECORDS SUMMARY | 2019-06-03 11:14 | XMS REPORT | Continuity of Care Document ---
:1998 External Reference #:[id number] Author Name Brooke Quintero, [facility] Address [address] [place] [phone] Care Team Providers Name Role Phone Bandar Arora MD - Emergency Care Team Information Certified Substance Abuse Counselor [phone] Medicine Kristina Bedoya FNP - Family Care Team Information Certified Substance Abuse Counselor [phone] Problems Active Problems Provider Date Candice Gann [...] Rate 87 /min Height 64 inches 5'4" [place] body weight in kilograms 54 kg O2 % BldC Oximetry 99 % 04/04/2019 9:57am BP Systolic Sitting Left Arm 129 mmHg BP Diastolic Sitting Left Arm 71 mmHg Body Temperature 95.7 F Heart Rate 94 /min Respiratory Rate 20 /min Height 64 inches 5'4" Weight 129.00 lb BMI (Body Mass Index) 22.1 kg/m2 BSA (Body Surface Area) 1.62 m2 [place] body weight in kilograms 54 kg O2 % BldC Oximetry 99 % Results Description No Information Available Procedures Date Code Description Status 04/15/2019 76692 Radiology, Wrist Complete Completed Medical Devices Description No Information Available Encounters Type Date Location Provider Dx Diagnosis Office Visit 04/04/2019 Orthopaedic Office Brooke Quintero M25.531 Pain in right 10:00a [facility] wrist Assessments Date Code Description Provider 04/15/2019 M25.531 Pain in right wrist Brooke Quintero [facility] 04/04/2019 M25.531 Pain in right wrist Brooke Quintero [facility] Plan of Treatment No Information Available Functional Status Description No Information Available Mental Status Description No Information Available Referrals Description No Information Available
[2019-06-03 11:25] VITALS: BP 127/78
[2019-06-03 11:39] LABS: Influenza A Molecular Negative (Negative); Influenza B Molecular Negative (Negative)
--- NOTE | 2019-06-03 11:41 | UC ---
Throat Pain/Nasal Samuel HPI - HPI Summary HPI Summary: 19-year-old woman comes in with a chief complaint of sore throat and feeling ill. Does have some body aches. Symptoms started yesterday. Hurts to swallow. Patient has a 3-month-old at home. She is not breast-feeding. Minimal rhinorrhea. - History of Current Complaint Chief Complaint: UCRespiratory Stated Complaint: SORE THROAT, COUGH Time Seen by Provider: 06/03/19 11:14 Hx Last Menstrual Period: last week Pain Intensity: 7 - Allergies/Home Medications Allergies/Adverse Reactions: Allergies Allergy/AdvReac Type Severity Reaction Status Date / Time cats, maybe bees(father is Allergy Congestion Uncoded 06/03/19 11:25 allergic Home Medications: Home Medications O C 1 tab PO QPM 06/03/19 [History] PMH/Surg Hx/FS Hx/Imm Hx Previously Healthy: Yes Other History Of: Negative For: HIV, Hepatitis B, Hepatitis C, Anticoagulant Therapy - Surgical History Surgical History: Yes Surgery Procedure, Year, and Place: T&A - Family History Known Family History: Negative: Cardiac Disease, Hypertension, Diabetes - Social History Alcohol Use: None Substance Use Type: None Smoking Status (MU): Never Smoked Tobacco Have You Smoked in the Last Year: No Household Exposure Type: Cigarettes - Immunization History Most Recent Influenza Vaccination: NOT YET IN 2106 Vaccination Up to Date: Yes Review of Systems All Other Systems Reviewed And Are Negative: Yes Constitutional: Positive: Other - see hpi Skin: Positive: Negative Eyes: Positive: Negative ENT: Positive: Sore Throat, Nasal Discharge Respiratory: Positive: Negative Cardiovascular: Positive: Negative Gastrointestinal: Positive: Negative Genitourinary: Positive: Negative Motor: Positive: Negative Neurovascular: Positive: Negative Musculoskeletal: Positive: Myalgia Neurological/Mental Status: Positive: Negative Psychological: Positive: Negative Is Patient Immunocompromised?: No Physical Exam Triage Information Reviewed: Yes Vital Signs: Initial Vital Signs Temp 98.4 F 06/03/19 11:17 Pulse 103 06/03/19 11:17 Resp 18 06/03/19 11:17 BP 127/78 06/03/19 11:17 Pulse Ox 99 06/03/19 11:17 Vital Signs Reviewed: Yes Eye Exam: Normal Eyes: Positive: Conjunctiva Clear ENT: Positive: Pharyngeal erythema, Nasal congestion, Nasal drainage, TMs normal Neck: Positive: Supple Respiratory: Positive: Lungs clear, Normal breath sounds, No respiratory distress Cardiovascular: Positive: RRR Musculoskeletal: Positive: Strength Intact, ROM Intact Neurological: Positive: Alert, Muscle Tone Normal Psychological: Positive: Normal Response To Family, Age Appropriate Behavior Skin Exam: Normal Throat Pain/Nasal Course/Dx - Course Course Of Treatment: Strep and flu are both negative. Most probable viral infection. We will treat symptomatically. Get reevaluated if not improving or worse. - Differential Dx/Diagnosis Provider Diagnosis: Sore throat, Upper respiratory infection Discharge ED - Sign-Out/Discharge Documenting (check all that apply): Patient Departure All imaging exams completed and their final reports reviewed: No Studies - Discharge Plan Condition: Stable Disposition: HOME Patient Education Materials: Pharyngitis (ED), Upper Respiratory Infection (ED) Forms: *Work Release Referrals: No Primary Care Phys,NOPCP [Primary Care Provider] - Additional Instructions: FOLLOW UP WITH YOUR DOCTOR IF NOT COMPLETELY IMPROVED. GET REEVALUATED SOONER IF NOT IMPROVED OR WORSE OR ANY QUESTIONS OR CONCERNS. - Billing Disposition and Condition Condition: STABLE Disposition: Home
== END 2019-06-03 11:54 | disposition home or self-care (01) ==
LOC: UCCORT 10:44
DX: J06.9 Acute upper respiratory infection, unspecified (principal); J02.9 Acute pharyngitis, unspecified; Z91.09 Other allergy status, other than to drugs and biological substances
CPT/HCPCS: 87651; 99211; G0463

== ENCOUNTER 2019-07-04 08:30 | Emergency (ER) | payer BC, OTHER ==
--- OUTSIDE RECORDS SUMMARY | 2019-07-04 08:44 | XMS REPORT | Continuity of Care Document ---
:2000 External Reference #:[id number] Author Name Brooke Quintero, [facility] (transmitted by agent of provider Joy Jacome ) Address [address] [place] [id number] Care Team Providers Name Role Phone Bandar Arora MD - Emergency Care Team Information Floor Press Operator [phone] Medicine Kristina Bedoya FNP - Family Care Team Information Floor Press Operator [phone] Problems Active Problems Provider Date Candice Gann [...] Ana Jacome, 05/17/2019 with food 50mg Tablets DR Albuterol Sulfate inhale 1 vial via Unknown nebulizer every 4 1.25mg/3ML Nebulizer hours as needed for cough or sob Immunizations Description No Information Available Vital Signs Date Vital Result Comment 06/20/2019 9:10am BP Systolic 120 mmHg BP Diastolic 70 mmHg Body Temperature 98.0 F Heart Rate 86 /min Weight 129.00 lb 05/17/2019 8:55am BP Systolic Sitting Right Arm 112 mmHg BP Diastolic Sitting Right Arm 69 mmHg Results Description No Information Available Procedures Date Code Description Status 05/17/2019 78287 Radiology, Wrist Complete Completed 04/15/2019 57894 Radiology, Wrist Complete Completed 04/15/2019 71593 Application of Cast short arm Completed 04/04/2019 19638 Application of Cast short arm Completed Medical Devices Description No Information Available Encounters Type Date Location Provider Dx Diagnosis Office Visit 06/20/2019 Orthopaedic Office Brooke Quintero M25.531 Pain in right 9:15a S., [facility] wrist M65.4 Radial styloid tenosynovitis [de Quervain] Office Visit 05/17/2019 9:00a Orthopaedic Office Brooke Quintero M25.531 Pain in S., [facility] right wrist Office Visit 04/15/2019 10:00a Orthopaedic Office Brooke Quintero M25.531 Pain in S., [facility] right wrist Office Visit 04/04/2019 10:00a Orthopaedic Office Brooke Quintero M25.531 Pain in S., [facility] right wrist W00.9xxA Unspecified fall due to ice and snow, initial encounter Assessments Date Code Description Provider 06/20/2019 M25.531 Pain in right wrist Brooke Quintero, [facility] 06/20/2019 M65.4 Radial styloid tenosynovitis [Brooke Bruce, [facility] Quervain] 05/17/2019 M25.531 Pain in right wrist Brooke Quintero, [facility] 04/15/2019 M25.531 Pain in right wrist Brooke Quintero, [facility] 04/04/2019 M25.531 Pain in right wrist Brooke Quintero, [facility] 04/04/2019 W00.9xxA Unspecified fall due to ice and snow, Brooke Quintero [facility] initial encounter Plan of Treatment Future Appointment(s):07/23/2019 9:30 am - Brooke Quintero [facility] at Orthopaedic Office Functional Status Description No Information Available Mental Status Description No Information Available Referrals Description No Information Available
--- OUTSIDE RECORDS SUMMARY | 2019-07-04 08:44 | XMS REPORT | Continuity of Care Document ---
:1998 External Reference #:[id number] Author Name Brooke Quintero, [facility] (transmitted by agent of provider Malena Rodriguez) Address [address] [place] [id number] Care Team Providers Name Role Phone Bandar Arora MD - Emergency Care Team Information Tourist Camp Attendant [phone] Medicine Kristina Bedoya FNP - Family Care Team Information Tourist Camp Attendant [phone] Problems Active Problems Provider Date Candice Gann [...] Available Procedures Date Code Description Status 05/17/2019 56960 Radiology, Wrist Complete Completed 04/15/2019 97672 Radiology, Wrist Complete Completed 04/15/2019 23026 Application of Cast short arm Completed 04/04/2019 46420 Application of Cast short arm Completed Medical Devices Description No Information Available Encounters Type Date Location Provider Dx Diagnosis Office Visit 05/17/2019 Orthopaedic Office Brooke Quintero M25.531 Pain in right 9:00a S., [facility] wrist Office Visit 04/15/2019 Orthopaedic Office Brooke Quintero M25.531 Pain in right 10:00a S., [facility] wrist Office Visit 04/04/2019 Orthopaedic Office Brooke Quintero M25.531 Pain in right 10:00a S., [facility] wrist W00.9xxA Unspecified fall due to ice and snow, initial encounter Assessments Date Code Description Provider 05/17/2019 M25.531 Pain in right wrist Brooke Quintero, [facility] 04/15/2019 M25.531 Pain in right wrist Brooke Quintero, [facility] 04/04/2019 M25.531 Pain in right wrist Brooke Quintero, [facility] 04/04/2019 W00.9xxA Unspecified fall due to ice and snow, Brooke Quintero [facility] initial encounter Plan of Treatment Future Appointment(s):07/23/2019 9:30 am - Brooke Quintero [facility] at Orthopaedic Office Functional Status Description No Information Available Mental Status Description No Information Available Referrals Description No Information Available
[2019-07-04 08:59] VITALS: BP 115/73
--- NOTE | 2019-07-04 09:41 | UC ---
Eye Complaint HPI - HPI Summary HPI Summary: 19-year-old woman comes in with a chief complaint of right eye crusting drainage and redness. Symptoms started this morning. She cleaned the area off which did improve the symptoms. Has some runny nose just this morning. No sore throat no fevers. Does have a nephew that recently had conjunctivitis. Does not wear contacts. No known trauma. - History of Current Complaint Chief Complaint: UCEye Stated Complaint: R EYE COMP Time Seen by Provider: 07/04/19 09:34 Hx Last Menstrual Period: unknown Pain Intensity: 0 - Allergies/Home Medications Allergies/Adverse Reactions: Allergies Allergy/AdvReac Type Severity Reaction Status Date / Time cats, maybe bees(father is Allergy Congestion Uncoded 07/04/19 08:53 allergic Home Medications: Home Medications Tobramycin 0.3% OPHTH.MARICEL* 1 drop RIGHT EYE Q4H #1 btl 07/04/19 [Rx] guaiFENesin ER TAB [Mucinex*] 600 mg PO BID PRN 07/04/19 [History Confirmed ] PMH/Surg Hx/FS Hx/Imm Hx Previously Healthy: Yes Other History Of: Negative For: HIV, Hepatitis B, Hepatitis C, Anticoagulant Therapy - Surgical History Surgical History: Yes Surgery Procedure, Year, and Place: T&A - Family History Known Family History: Negative: Cardiac Disease, Hypertension, Diabetes - Social History Alcohol Use: None Substance Use Type: None Smoking Status (MU): Light Every Day Tobacco Smoker Type: Cigarettes Amount Used/How Often: 5 cigarettes daily Have You Smoked in the Last Year: No Household Exposure Type: Cigarettes - Immunization History Most Recent Influenza Vaccination: NOT YET IN 2106 Vaccination Up to Date: Yes Review of Systems All Other Systems Reviewed And Are Negative: Yes Constitutional: Positive: Negative Skin: Positive: Negative Eyes: Positive: Drainage, Eye Redness ENT: Positive: Nasal Discharge Respiratory: Positive: Negative Cardiovascular: Positive: Negative Gastrointestinal: Positive: Negative Motor: Positive: Negative Neurovascular: Positive: Negative Musculoskeletal: Positive: Negative Neurological/Mental Status: Positive: Negative Psychological: Positive: Negative Is Patient Immunocompromised?: No Physical Exam Triage Information Reviewed: Yes Appearance: Well-Appearing, No Pain Distress, Well-Nourished Vital Signs: Initial Vital Signs Temp 98.4 F 07/04/19 08:54 Pulse 104 07/04/19 08:54 Resp 15 03/19/20 08:54 BP 115/73 07/04/19 08:54 Pulse Ox 100 07/04/19 08:54 Vital Signs Reviewed: Yes Eyes: Positive: Conjunctiva Inflamed - RT, Discharge - RT, Other: - PERRLA EOMI. No hyphema. ENT: Positive: Nasal congestion, Nasal drainage Neck: Positive: Supple Respiratory: Positive: No respiratory distress Musculoskeletal: Positive: Strength Intact, ROM Intact Neurological: Positive: Alert, Muscle Tone Normal Psychological: Positive: Age Appropriate Behavior Skin Exam: Normal Eye Complaint Course/Dx - Differential Dx/Diagnosis Provider Diagnosis: Right conjunctivitis Discharge ED - Sign-Out/Discharge Documenting (check all that apply): Patient Departure All imaging exams completed and their final reports reviewed: No Studies - Discharge Plan Condition: Stable Disposition: HOME Prescriptions: Tobramycin 0.3% OPHTH.MARICEL* 1 drop RIGHT EYE Q4H #1 btl Patient Education Materials: Conjunctivitis (ED) Forms: *Work Release Referrals: Lilian Webb NP [Primary Care Provider] - Additional Instructions: FOLLOW UP WITH YOUR DOCTOR IF NOT COMPLETELY IMPROVED. GET REEVALUATED IF NOT IMPROVING OR WORSE OR ANY QUESTIONS OR CONCERNS. - Billing Disposition and Condition Condition: STABLE Disposition: Home
== END 2019-07-04 09:48 | disposition home or self-care (01) ==
LOC: UCCORT 08:30
DX: H10.9 Unspecified conjunctivitis (principal); F17.210 Nicotine dependence, cigarettes, uncomplicated; Z91.09 Other allergy status, other than to drugs and biological substances
CPT/HCPCS: 99212; G0463